=== PATIENT | male | born 1935 | race Caucasian/White ===

== ENCOUNTER 2018-11-13 11:04 | Outpatient (CLI) | payer MEDICARE, BC, SELFPAY ==
[2018-11-14 09:13] LABS: PSA, Diagnostic 0.2 ng/ml (0-6.5)
== END 2018-11-13 11:24 ==
PROVIDERS: Visit Provider Nurse Practitioner
DX: C61 Malignant neoplasm of prostate (principal)
CPT/HCPCS: 36415; 84153